=== PATIENT | female | born 2000 | race Two or more races ===

== ENCOUNTER 2025-03-26 17:58 | Emergency (ER) | payer BC, SELFPAY ==
[2025-03-26 17:59] VITALS: BMI 18.1
[2025-03-26 18:39] VITALS: BP 112/71; PULSE 78; RESP 18; TEMP 36.7; O2SAT 98
--- NOTE | 2025-03-26 19:05 | EDNOTE_ITS ---
ED Abdominal Pain RME/HPI General Chief Complaint: Abdominal Pain Stated complaint: LEFT UPPER ABD PAIN Time seen by provider: 03/26/25 18:58 Arrival date/time: 03/26/25 17:58 This is a case of 25 year old female who came in with abdominal pain radiating to both flank with nausea no vomiting denies Limitations: no limitations Related Data Home Medications ?Medication ?Instructions ?Recorded ?Confirmed aripiprazole 5 mg tablet (Abilify) 5 mg PO QDAY 03/02/22 Previous Rx's ?Medication ?Instructions ?Recorded sulfamethoxazole 800 1 tab PO Q12H #14 tabs 05/07 mg-trimethoprim 160 mg tablet (Bactrim DS) baclofen 10 mg tablet 10 mg PO BID PRN muscle spas m #20 03/26/25 tabs ibuprofen 400 mg tablet 400 mg PO Q6H PRN pain #20 t abs 03/26/25 Allergies Allergy/AdvReac Type Severity Reaction Status Date / Time codeine Allergy Unknown Rash Verified 03/26/25 17:59 Review of Systems Review of Systems Systems Reviewed: All systems reviewed, normal except as documented Constitutional Constitutional: Reports system reviewed and no additional complaints, except as documented, Denies anorexia, Denies chills and Denies fever(s) ENT Ears, Nose, Mouth, and Throat: Denies dysphagia Cardiovascular Cardiovascular: Reports system reviewed and no additional complaints, except as documented, Denies chest pain and Denies dyspnea on exertion Respiratory Respiratory: Reports system reviewed and no additional complaints, except as documented, Reports as per HPI, Denies chest congestion, Denies cough and Denies dyspnea on exertion Gastrointestinal Gastrointestinal: Reports system reviewed and no additional complaints, except as documented, Reports as per HPI, Reports abdominal pain, Denies change in bowel habits, Denies change in stool character, Denies coffee ground emesis, Denies constipation, Denies cramping, Denies diarrhea, Denies dyspepsia, Denies dysphagia, Denies early satiety, Denies hematemesis, Reports nausea and Reports vomiting Genitourinary Genitourinary: Reports system reviewed and no additional complaints, except as documented, Reports as per HPI, Denies difficulty voiding and Denies dysuria Musculoskeletal Musculoskeletal: Reports system reviewed and no additional complaints, except as documented Neurologic Neurologic: Reports system reviewed and no additional complaints, except as documented Past Medical History Past Medical History NEUROLOGIC: Negative Cerebrovascular Accident or Alzheimer's Disease CARDIAC: Negative Myocardial Infarction or Congestive Heart Failure RESPIRATORY: Positive Asthma; Negative Chronic Obstructive Pulmonary Disease (COPD) GASTROINTESTINAL: Negative Liver Cancer or Pancreatic Cancer GENITOURINARY: Negative Renal Disease MUSCULOSKELETAL: Negative Musculoskeletal Disorders or Muscular Dystrophy ENDOCRINE: Negative Endocrine Disorders, Diabetes Mellitus Type 1 or Diabetes Mellitus Type 2 PSYCHO/SOCIAL: Positive Psychiatric Problems and Depression OTHER HISTORY: Negative Down Syndrome or Developmental Delay Social History SMOKING STATUS: Never smoker ED Exam General Limitations: Present no limitations General appearance: Present alert and in no apparent distress; Absent appears intoxicated, anxious or lethargic Head Head exam: Present atraumatic, normocephalic and normal inspection Eye Eye exam: Present normal appearance, PERRL and EOMI ENT ENT exam: Present normal exam, normal oropharynx and mucous membranes moist Neck Neck exam: Present normal inspection, full ROM and trachea midline; Absent tend erness, meningismus or lymphadenopathy Chest Chest inspection: Present normal inspection and symmetric chest wall rise Respiratory Respiratory exam: Present normal lung sounds bilaterally; Absent respiratory distress, wheezes, stridor or accessory muscle use Cardiovascular Cardiovascular exam: Present regular rate, normal rhythm and normal heart sounds Abdominal Exam Abdominal exam: Present soft, tenderness, normal bowel sounds and other (no cva tenderness); Absent distention, guarding, rebound, rigidity, diminished bowel sounds, hyperactive bowel sounds, hypoactive bowel sounds, organomegaly, psoas sign, obturator sign, Latham's sign, Rovsing's sign or tenderness at McBurney's Point Extremities Exam Extremities exam: Present normal inspection, full ROM and normal capillary refill; Absent tenderness, pedal edema, joint swelling or calf tenderness Back Exam Back exam: Present normal inspection and full ROM; Absent tenderness, CVA tenderness (R), CVA tenderness (L), muscle spasm, paraspinal tenderness, vertebral tenderness, rashes, sciatic notch tenderness (R), sciatic notch tenderness (L), straight leg raise (R) or straight leg raise (L) Neurological Exam Neurological exam: Present alert, oriented X3, CN II-XII intact, normal gait and reflexes normal; Absent motor sensory deficit Expanded Neurological Exam Motor strength - LUE: 5/5 Motor strength - RUE: 5/5 Motor strength - LLE: 5/5 Motor strength - RLE: 5/5 Psychiatric Psychiatric exam: Present normal affect and normal mood Skin Skin exam: Present warm, dry, intact and normal color Course Quality Measures none Orders Category Date Time Status CT abdomen pelvis wo con Stat Exams 03/26/25 19:15 Completed CBC Stat Lab 03/26/25 19:25 Completed Comprehensive Metabolic Panel Stat Lab 03/26/25 19:25 Completed HCG Qualitative,Urine Stat Lab 03/26/25 19:47 Completed Lipase Stat Lab 03/26/25 19:25 Completed Urinalysis Stat Lab 03/26/25 19:47 Completed Vital Signs Vital signs: Vital Signs Temperature 98.1 F 03/26/25 18:39 Pulse Rate 78 03/26/25 18:39 Respiratory Rate 18 03/26/25 18:39 Blood Pressure 112/71 03/26/25 18:39 Pulse Oximetry (%) 98 03/26/25 18:39 Oxygen Delivery Method Room Air 03/26/25 18:39 Abdominal Pain MDM MDM Narrative MDM Narrative:: This is a case of 25 year old female who came in with abdominal pain radiating to both flank with nausea no vomiting denies Physicial exam showed normal vital signs patient is not tacycardic not tacypneic blood pressure stable afebrile not hypoxic Abdominal exam benign non surgical no guarding no rebound no rigidity. 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 Walking stable Patient verbalized no further complain with the proposed management plan including the need to follow up with his/her primary care physician and and any specialist fif applicable. Discussed patient for any urgent condition or worsening sx He she needed to go to Emergency room of call 911 Patient is acknowledge the responsibility to follow up as instructed and to monitor his/her symptoms For any persistnce of the symtoms for more than 3-5 days retrun precaution advised Discussed the result of thetest and was given printed dsicahrge instruction Patient data External records reviewed:: [facility] previous records Clinical information provided by:: patient Social determinants that could affect healthcare access:: none Patient has the following chronic illnesses:: none How is presenting disease/condition affected by chronic disease/condition?: no chronic disease Evaluation data The following diagnostics were reviewed and interpreted by me:: lab results and radiology exam(s) Lab and/or radiology exams considered but not ordered:: reviewed Interpretation Summary: normal Medications / Prescriptions Medications or Prescriptions considered but not ordered:: none Medication administrations:: given Consultations Consultation(s) initiated? (list below): No Diagnosis Differential diagnosis abdominal pain: abdominal pain, calculus of kidney, constipation and diverticulitis Most likely diagnosis given after review of the tests above:: abdominal pain Admission Indicated Admission indicated?: not indicated Explain why admission is indicated or not indicated:: not indicated Admission Request Was there a request for admission?: No Admission Attestation Admission request attestation: not indicated Disposition Plan Disposition Plan: Discharge Discharge Attestation Discharge Attestation: The patient and all family members were given an opportunity to ask questions and understood the discharge instructions. Discharge instructions specifically effects, indications for sooner follow up or return to the emergency department, and the expected course of current diagnosis. Patient condition: Stable Discharge Plan Plan Patient Disposition: HOME (Self Care) Patient condition on transfer: Stable Prescriptions/Referrals Prescriptions/Med Rec: New ibuprofen 400 mg tablet 400 mg PO Q6H PRN (Reason: pain) Qty: 20 0RF baclofen 10 mg tablet 10 mg PO BID PRN (Reason: muscle spasm) Qty: 20 0RF No Action aripiprazole [Abilify] 5 mg Tablet 5 mg PO QDAY sulfamethoxazole-trimethoprim [Bactrim DS] 800-160 mg tablet 1 tab PO Q12H Qty: 14 0RF Referrals: No Primary/Family,Physician [Primary Care Provider] - In 1 week Sergio Galvez MD [Physician] - In 1 week (for further evaluation and tx of lumbar herniated disc for possible MRI) Problem List Clinical Impression: Bulging lumbar disc, Abdominal pain Patient/Caregiver Discharge Instructions Other Activity Instructions:: no pulling no pushing no lifting more than 5 pounds Education Materials: Abdominal Pain, Back Safety Bed, Back Safety: Bending, Back Safety: Lifting, Common Spine and Disk Problems Print Language: Maldivian Stand Alone Forms: Starr Award Info., Work/School Release, Patient Portal Info Letter PA/SUPERVISOR POULTRY PROCESSING Supervising Physician PA/SUPERVISOR POULTRY PROCESSING Supervising Physician: dr griffith
--- NOTE | 2025-03-26 19:15 | XR_ITS ---
Examination: CT abdomen and pelvis without contrast. Coronal 3-D reconstructions. Sagittal 2-D reconstructions. Date and time of exam:March 26, 2025 2048 hours INDICATIONS: Sudden left-sided abdominal pain today CTDI: vol (mGy): 4.35 DLP: (mGycm): 202 Technique: Axial images of the abdomen have been obtained, 3 mm slice thickness Intravenous contrast material has not been administered. Low dose protocols were performed. One or more of the following dose reduction techniques were used; automated exposure control, adjustment of the mA and/or KV according to patient size, use of iterative reconstruction technique. Findings: No liver or splenic lesion Contracted gallbladder Normal pancreas No renal or ureteral calculi Aorta normal size Normal appendix No bowel obstruction No diverticulitis Retroverted uterus No adnexal mass No bladder mass or bladder calculi L5-S1 3 mm central lumbar disc bulge IMPRESSION: No renal or ureteral calculi, no hydronephrosis Normal appendix No bowel obstruction diverticulitis or free air
[2025-03-26 19:39] LABS: Basophils # (Auto) 0.1 Thou/mm3 (0.0-0.2); Basophils % (Auto) 2 % (0-2.5); Eosinophils # (Auto) 0.2 Thou/mm3 (0.0-0.5); Eosinophils % (Auto) 4 % (0-10); Hematocrit 37.1 % (36.0-46.0); Hemoglobin 12.3 g/dL (12.0-16.0); Immature Granulocytes % (Auto) 0 % (0-0); Lymphocytes # (Auto) 2.3 Thou/mm3 (1.0-4.8); Lymphocytes % (Auto) 58 % (10-50); Mean Corpuscular HGB Conc 33.2 g/dl (31.0-37.0); Mean Corpuscular Hemoglobin 28.1 pg (25.0-35.0); Mean Corpuscular Volume 85 fL (80-100); Monocytes # (Auto) 0.5 Thou/mm3 (0.0-0.8); Monocytes % (Auto) 12 % (0-12); Neutrophils % (Auto) 24 % (37-80); Nucleated Red Blood Cell % 0 /100 WBC (0); Platelet Count 273 Thou/mm3 (140-440); RDW Standard Deviation 38.5 fL (36.4-46.3); Red Blood Count 4.38 Miln/mm3 (4.00-5.20)
[2025-03-26 20:08] LABS: Collection Type, Urine Clean Catch
[2025-03-26 20:25] LABS: Alanine Aminotransferase 10 U/L (10-49); Albumin, Serum 4.9 gm/dL (3.5-5.0); Albumin/Globulin Ratio 1.7 (1.2-2.2); Alkaline Phosphatase 82 U/L (46-116); Anion Gap 9 (7-16); Aspartate Amino Transferase 21 U/L (0-34); BUN/Creatinine Ratio 18 Ratio (12-20); Bilirubin,Total 0.4 mg/dL (0.3-1.2); Blood Urea Nitrogen 18 mg/dL (9-23); Calcium 9.8 mg/dL (8.3-10.6); Calcium (Corrected) 9.8 mg/dL (8.5-10.1); Chloride 100 mMol/L (98-107); Globulin 2.9 gm/dL (2.3-3.5); Glucose 97 mg/dL (74-106); Lipase 51 U/L (12-53); Osmolality,Calculated 277 (275-295); Potassium 3.7 mMol/L (3.4-5.1); Sodium 138 mMol/L (136-145); Total Protein 7.8 gm/dL (5.7-8.2); eGFR > 60 See Note
[2025-03-26 20:26] LABS: Bilirubin,Urine Negative (Negative); Blood,Urine Negative (Negative); Clarity,Urine Clear (Clear/Hazy); Color,Urine Colorless (Lt Yel-Yel); Glucose, Urine Negative (Negative); Ketones,Urine Negative (Negative); Leukocyte Esterase,Urine Negative (Negative); Nitrite,Urine Negative (Negative); PH,Urine 6.5 (5.0-7.0); Protein,Urine Negative (Neg - Trace); RBC,Urine 1 /hpf (0-3); Specific Gravity,Urine 1.006 (1.001-1.035); Squamous Epithelial Cell,Urine 2 /hpf (0-5); Urobilinogen,Urine Negative mg/dL (0.0-1.0); WBC,Urine < 1 /hpf (0-5)
[2025-03-26 20:31] LABS: HCG Qualitative,Urine Negative
[2025-03-26 22:02] VITALS: RESP 18
== END 2025-03-26 22:03 | disposition home or self-care (01) ==
PROVIDERS: Nurse Practitioner Family; Emergency Provider Emergency Medicine
DX: M51.26 Other intervertebral disc displacement, lumbar region (principal); R10.10 Upper abdominal pain, unspecified
CPT/HCPCS: 36415; 74176; 80053; 81001; 81025; 83690; 85025; 99284

== ENCOUNTER → 2025-03-29 | Outpatient (CLI) | payer BC, SELFPAY ==
[2025-03-29 09:12] LABS: Collection Type, Urine Clean Catch
[2025-03-29 09:38] LABS: Bilirubin,Urine Negative (Negative); Blood,Urine Negative (Negative); Clarity,Urine Clear (Clear/Hazy); Color,Urine Lt-Yellow (Lt Yel-Yel); Glucose, Urine Negative (Negative); Ketones,Urine Negative (Negative); Leukocyte Esterase,Urine Negative (Negative); Nitrite,Urine Negative (Negative); PH,Urine 7.5 (5.0-7.0); Protein,Urine Negative (Neg - Trace); RBC,Urine 4 /hpf (0-3); Specific Gravity,Urine 1.014 (1.001-1.035); Squamous Epithelial Cell,Urine 2 /hpf (0-5); Urobilinogen,Urine Negative mg/dL (0.0-1.0); WBC,Urine < 1 /hpf (0-5)
[2025-03-29 09:41] LABS: Basophils # (Auto) 0.1 Thou/mm3 (0.0-0.2); Basophils % (Auto) 2 % (0-2.5); Eosinophils # (Auto) 0.1 Thou/mm3 (0.0-0.5); Eosinophils % (Auto) 5 % (0-10); Glucose Estimated Average 97 mg/dL (80-131); Hematocrit 38.4 % (36.0-46.0); Hemoglobin 12.7 g/dL (12.0-16.0); Immature Granulocytes % (Auto) 0 % (0-0); Immature Granulocytes Auto 0.01 Thou/mm3 (0.00-0.00); Lymphocytes # (Auto) 1.7 Thou/mm3 (1.0-4.8); Lymphocytes % (Auto) 54 % (10-50); Mean Corpuscular HGB Conc 33.1 g/dl (31.0-37.0); Mean Corpuscular Hemoglobin 27.7 pg (25.0-35.0); Mean Corpuscular Volume 84 fL (80-100); Monocytes # (Auto) 0.4 Thou/mm3 (0.0-0.8); Monocytes % (Auto) 11 % (0-12); Neutrophils # (Auto) 0.9 Thou/mm3 (1.8-7.7); Neutrophils % (Auto) 28 % (37-80); Nucleated Red Blood Cell % 0 /100 WBC (0); Platelet Count 266 Thou/mm3 (140-440); RDW Standard Deviation 37.8 fL (36.4-46.3); Red Blood Count 4.58 Miln/mm3 (4.00-5.20); White Blood Count 3.1 Thou/mm3 (3.6-11.0)
[2025-03-29 10:04] LABS: Alanine Aminotransferase 7 U/L (10-49); Albumin, Serum 4.8 gm/dL (3.5-5.0); Albumin/Globulin Ratio 1.6 (1.2-2.2); Alkaline Phosphatase 82 U/L (46-116); Anion Gap 9 (7-16); Aspartate Amino Transferase 21 U/L (0-34); BUN/Creatinine Ratio 16 Ratio (12-20); Bilirubin,Total 0.5 mg/dL (0.3-1.2); Blood Urea Nitrogen 14 mg/dL (9-23); Calcium 9.4 mg/dL (8.3-10.6); Calcium (Corrected) 9.4 mg/dL (8.5-10.1); Carbon Dioxide 29.1 mMol/L (20.0-31.0); Cardiac Risk Estimate 2.8 RATIO (3.7-5.6); Chloride 104 mMol/L (98-107); Cholesterol 188 mg/dL (132-200); Creatinine (Component) 0.9 mg/dL (0.6-1.3); Glucose 87 mg/dL (74-106); HDL Cholesterol 66 mg/dL (40-60); LDL Cholesterol,Calculated 112 mg/dL (0-130); Osmolality,Calculated 282 (275-295); Potassium 4.2 mMol/L (3.4-5.1); Sodium 142 mMol/L (136-145); Thyroid Stimulating Hormone 6.05 uIU/mL (0.55-4.78); Total Protein 7.8 gm/dL (5.7-8.2); Triglycerides 51 mg/dL (30-150); eGFR > 60 See Note
[2025-03-29 10:25] LABS: Hepatitis C Antibody Non Reactive (Non React); Vitamin D 25 Hydroxy Total 17.2 ng/mL (7.3-40.2)
[2025-03-29 12:24] LABS: Path Review Blood Smear Sent to Pathologist
[2025-04-02 07:04] LABS: Fecal Globin Result NOT DETECTED (NOT DETECTED)
== END | disposition home or self-care (01) ==
LOC: COPL 08:10
PROVIDERS: PCP Family Medicine; Referring Provider Family Medicine; Visit Provider Family Medicine
DX: Z76.89 Persons encountering health services in other specified circumstances (principal)
CPT/HCPCS: 36415; 80053; 80061; 81001; 82274; 82306; 83036; 84443; 85025; 86803; G0328

== ENCOUNTER 2025-05-18 02:02 | Emergency (ER) | payer BC, SELFPAY ==
[2025-05-18 02:11] VITALS: BP 105/74; PULSE 90; RESP 18; TEMP 36.7; O2SAT 98
--- NOTE | 2025-05-18 02:13 | EKG_ITS ---
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
--- NOTE | 2025-05-18 02:42 | EDNOTE_ITS ---
<Statement entered by Sloane Evans MD - 05/20/25 18:55> As co-signing physician, I was present and available for consult prn. I concur with the plan and care as documented by the midlevel provider. ED Back Injury Pain RME/HPI General Chief Complaint: General Adult/Misc Complain Stated Complaint: LEFT ARM NUMBNESS, UPPER BACK PAIN Time Seen by Provider: 05/18/25 02:37 Arrival date/time: 05/18/25 02:02 25F with no history of psych presents to ED with several hours of L upper back pain and L arm numbness. Patient denies fall/trauma, SOB, and URI symptoms. 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 Limitations: no limitations Related Data Home Medications ?Medication ?Instructions ?Recorded ?Confirmed aripiprazole 5 mg tablet (Abilify) 5 mg PO QDAY 03/02/22 Previous Rx's ?Medication ?Instructions ?Recorded sulfamethoxazole 800 1 tab PO Q12H #14 tabs 05/07 mg-trimethoprim 160 mg tablet (Bactrim DS) baclofen 10 mg tablet 10 mg PO BID PRN muscle spas m #20 03/26/25 tabs ibuprofen 400 mg tablet 400 mg PO Q6H PRN pain #20 t abs 03/26/25 Allergies Allergy/AdvReac Type Severity Reaction Status Date / Time codeine Allergy Unknown Rash Verified 05/18/25 02:03 Review of Systems Review of Systems Systems Reviewed: All systems reviewed, normal except as documented Constitutional Constitutional: Reports system reviewed and no additional complaints, except as documented, Denies fever(s) and Denies headache(s) ENT Ears, Nose, Mouth, and Throat: Denies disequilibrium and Denies headache(s) Cardiovascular Cardiovascular: Reports system reviewed and no additional complaints, except as documented, Denies chest pain and Denies dyspnea Respiratory Respiratory: Reports system reviewed and no additional complaints, except as documented, Denies cough and Denies dyspnea Gastrointestinal Gastrointestinal: Reports system reviewed and no additional complaints, except as documented, Denies abdominal pain, Denies nausea and Denies vomiting Musculoskeletal Musculoskeletal: Reports as per HPI, Reports back pain and Reports numbness Neurologic Neurologic: Reports system reviewed and no additional complaints, except as documented, Denies confusion, Denies disequilibrium, Denies headache(s) and Reports numbness Psychiatric Psychiatric: Denies confusion Past Medical History Past Medical History NEUROLOGIC: Negative Cerebrovascular Accident or Alzheimer's Disease CARDIAC: Negative Myocardial Infarction or Congestive Heart Failure RESPIRATORY: Positive Asthma; Negative Chronic Obstructive Pulmonary Disease (COPD) GASTROINTESTINAL: Negative Liver Cancer or Pancreatic Cancer GENITOURINARY: Negative Renal Disease MUSCULOSKELETAL: Negative Musculoskeletal Disorders or Muscular Dystrophy ENDOCRINE: Negative Endocrine Disorders, Diabetes Mellitus Type 1 or Diabetes Mellitus Type 2 PSYCHO/SOCIAL: Positive Psychiatric Problems and Depression OTHER HISTORY: Negative Down Syndrome or Developmental Delay Social History SMOKING STATUS: Never smoker ED Exam General Limitations: Present no limitations General appearance: Present alert and in no apparent distress Head Head exam: Present atraumatic Eye Eye exam: Present normal appearance, PERRL and EOMI ENT ENT exam: Present normal exam, normal oropharynx and mucous membranes moist Neck Neck exam: Present normal inspection, full ROM and trachea midline Chest Chest inspection: Present normal inspection and symmetric chest wall rise Respiratory Respiratory exam: Present normal lung sounds bilaterally Cardiovascular Cardiovascular exam: Present regular rate, normal rhythm and normal heart sounds Abdominal Exam Abdominal exam: Present soft and normal bowel sounds Extremities Exam Extremities exam: Present normal inspection and full ROM Back Exam Back exam: Present normal inspection and full ROM Neurological Exam Neurological exam: Present alert, oriented X3 and CN II-XII intact Psychiatric Psychiatric exam: Present normal affect and normal mood Skin Skin exam: Present warm, dry, intact and normal color Course Quality Measures none Orders Category Date Time Status EKG (ED ONLY) *Do not use* NOW Care 05/18/25 02:13 Completed EKG (ED Only) Stat Exams 05/18/25 02:13 Draft Vital Signs Vital signs: Vital Signs Temperature 98.1 F 05/18/25 02:11 Pulse Rate 90 05/18/25 02:11 Respiratory Rate 18 05/18/25 02:11 Blood Pressure 105/74 05/18/25 02:11 Pulse Oximetry (%) 98 05/18/25 02:11 Oxygen Delivery Method Room Air 05/18/25 02:11 O2 at 98% on RA and WNLs Back Pain / Injury MDM Narrative MDM Narrative:: 25F with no history of psych presents to ED with several hours of L upper back pain and L arm numbness. Patient denies fall/trauma, SOB, and URI symptoms. 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 Physical exam reveals clear lungs. Normal WOB. BUE exam normal. Strength and ROM intact. Patient is afebrile, calm, and alert. EKG is sinus tach of 104. Likely MSK-related. Educational Recruiter given. Patient data External records reviewed:: [facility] previous records Clinical information provided by:: patient Social determinants that could affect healthcare access:: mental health Patient has the following chronic illnesses:: psych How is presenting disease/condition affected by chronic disease/condition?: exacerbated by Evaluation data The following diagnostics were reviewed and interpreted by me:: EKG tracing(s) Lab and/or radiology exams considered but not ordered:: ordered Interpretation Summary: above Medications / Prescriptions Medications or Prescriptions considered but not ordered:: not ordered Medication administrations:: n/a Consultations Consultation(s) initiated? (list below): No Diagnosis Differential diagnosis back pain/injury: lumbar radiculopathy, sciatica, strain of lumbar region, renal colic, pyelonephritis, thoracic back pain, AAA and discitis Most likely diagnosis given after review of the tests above:: back pain Admission Indicated Admission indicated?: not indicated Admission Request Was there a request for admission?: No Disposition Plan Disposition Plan: Discharge Discharge Attestation Discharge Attestation: The patient and all family members were given an opportunity to ask questions and understood the discharge instructions. Discharge instructions specifically effects, indications for sooner follow up or return to the emergency department, and the expected course of current diagnosis. Patient condition: Stable Discharge Plan Plan Patient Disposition: HOME (Self Care) Discharge Disposition comment: Stable Prescriptions/Referrals Prescriptions/Med Rec: No Action aripiprazole [Abilify] 5 mg Tablet 5 mg PO QDAY sulfamethoxazole-trimethoprim [Bactrim DS] 800-160 mg tablet 1 tab PO Q12H Qty: 14 0RF ibuprofen 400 mg tablet 400 mg PO Q6H PRN (Reason: pain) Qty: 20 0RF baclofen 10 mg tablet 10 mg PO BID PRN (Reason: muscle spasm) Qty: 20 0RF Problem List Clinical Impression: Back pain Patient/Caregiver Discharge Instructions Education Materials: ED Back Pain (Acute or Chronic) Additional Instructions: Please follow-up with PCP within 24-48 hours and return immediately if symptoms worsen. If problem persists, recommend outpatient PT and/or MRI follow-up. In the meantime, rest, use ice/heat, and/or compression. Print Language: Serbian Stand Alone Forms: Patient Portal Info Letter PA/SECRETARY TO THE VICE PRESIDENT Supervising Physician PA/SECRETARY TO THE VICE PRESIDENT Supervising Physician: Dr. Evans
== END 2025-05-18 02:45 | disposition home or self-care (01) ==
LOC: SERX 02:47
PROVIDERS: Emergency Provider Emergency Medicine; PCP Family Medicine
DX: M54.6 Pain in thoracic spine (principal); R20.0 Anesthesia of skin; R94.31 Abnormal electrocardiogram [ECG] [EKG]
CPT/HCPCS: 93005; 99283

== ENCOUNTER → 2025-07-23 | Outpatient (CLI) | payer BC, SELFPAY ==
--- NOTE | 2025-07-23 08:36 | XR_ITS ---
Examination: Abdomen sonogram, complete Date and time of exam: July 23, 2025 0900 hours INDICATIONS: Flank pain beginning one week ago.. Technique: Multiple real-time grayscale transabdominal sonographic images of the abdomen have been obtained. Findings: Normal gallbladder. Normal common bile duct 0.2 cm Pancreatic head 1.2 cm Aorta not enlarged. Liver 12.7 cm no liver lesions Normal hepatopedal portal venous flow. Patent IVC. Right kidney 8.6 cm cortex 0.8 cm Minimal hydronephrosis Left kidney 8.8 cm cortex 1.4 cm Minimal hydronephrosis. No renal calculi Spleen 8 cm IMPRESSION: Normal gallbladder Small kidneys with bilateral renal cortical thinning Minimal bilateral hydronephrosis, consider CT scan abdomen pelvis without intravenous contrast follow-up
--- NOTE | 2025-07-23 08:36 | XR_ITS ---
Examination: Retroperitoneal ultrasound, complete Technique: Multiple high resolution grayscale images of the retroperitoneum obtained, including kidneys and bladder. Exam date and time:July 23, 2025 0911 hours INDICATIONS: Bilateral flank pain beginning one week ago FINDINGS: Right kidney 8.7 cm cortex 0.9 cm Left kidney 8.6 cm renal cortex 1.4 cm Minimal bilateral hydronephrosis. No bladder mass or bladder calculi Bladder prevoid volume 190 cc postvoid volume 0 cc IMPRESSION: Small kidneys with bilateral renal cortical thinning Minimal bilateral hydronephrosis, consider urinary tract infection
[2025-07-23 10:27] LABS: Basophils # (Auto) 0.1 Thou/mm3 (0.0-0.2); Basophils % (Auto) 2 % (0-2.5); Eosinophils # (Auto) 0.1 Thou/mm3 (0.0-0.5); Eosinophils % (Auto) 4 % (0-10); Hematocrit 36.4 % (36.0-46.0); Hemoglobin 12.0 g/dL (12.0-16.0); Immature Granulocytes Auto 0.00 Thou/mm3 (0.00-0.00); Lymphocytes # (Auto) 1.8 Thou/mm3 (1.0-4.8); Lymphocytes % (Auto) 58 % (10-50); Mean Corpuscular HGB Conc 33.0 g/dl (31.0-37.0); Mean Corpuscular Hemoglobin 28.2 pg (25.0-35.0); Mean Corpuscular Volume 85 fL (80-100); Monocytes # (Auto) 0.3 Thou/mm3 (0.0-0.8); Monocytes % (Auto) 11 % (0-12); Neutrophils # (Auto) 0.8 Thou/mm3 (1.8-7.7); Neutrophils % (Auto) 26 % (37-80); Nucleated Red Blood Cell # 0.00 Thou/mm3 (0.00-0.00); Nucleated Red Blood Cell % 0 /100 WBC (0); Platelet Count 260 Thou/mm3 (140-440); RDW Standard Deviation 37.8 fL (36.4-46.3); Red Blood Count 4.26 Miln/mm3 (4.00-5.20); White Blood Count 3.1 Thou/mm3 (3.6-11.0)
[2025-07-23 10:37] LABS: Alanine Aminotransferase < 7 U/L (10-49); Albumin, Serum 4.8 gm/dL (3.5-5.0); Albumin/Globulin Ratio 2.3 (1.2-2.2); Alkaline Phosphatase 66 U/L (46-116); Anion Gap 7 (7-16); Aspartate Amino Transferase 21 U/L (0-34); BUN/Creatinine Ratio 13 Ratio (12-20); Bilirubin,Total 0.5 mg/dL (0.3-1.2); Blood Urea Nitrogen 12 mg/dL (9-23); Calcium 9.6 mg/dL (8.3-10.6); Calcium (Corrected) 9.6 mg/dL (8.5-10.1); Carbon Dioxide 28.6 mMol/L (20.0-31.0); Chloride 103 mMol/L (98-107); Creatinine (Component) 0.9 mg/dL (0.6-1.3); Globulin 2.1 gm/dL (2.3-3.5); Glucose 84 mg/dL (74-106); Osmolality,Calculated 276 (275-295); Potassium 4.4 mMol/L (3.4-5.1); Sodium 139 mMol/L (136-145); Total Protein 6.9 gm/dL (5.7-8.2); eGFR > 60 See Note
[2025-07-23 14:31] LABS: Collection Type, Urine Clean Catch
[2025-07-23 15:19] LABS: Bacteria,Urine Rare; Bilirubin,Urine Negative (Negative); Blood,Urine Negative (Negative); Clarity,Urine Clear (Clear/Hazy); Color,Urine Yellow (Lt Yel-Yel); Glucose, Urine Negative (Negative); Ketones,Urine Negative (Negative); Leukocyte Esterase,Urine Negative (Negative); Nitrite,Urine Negative (Negative); PH,Urine 7.5 (5.0-7.0); Protein,Urine Negative (Neg - Trace); RBC,Urine 1 /hpf (0-3); Specific Gravity,Urine 1.017 (1.001-1.035); Squamous Epithelial Cell,Urine 1 /hpf (0-5); Urobilinogen,Urine Negative mg/dL (0.0-1.0); WBC,Urine 1 /hpf (0-5)
== END | disposition home or self-care (01) ==
LOC: CDIM 08:20 → COPL 09:23
PROVIDERS: PCP Family Medicine; Referring Provider Registered Nurse; Visit Provider Radiology Diagnostic Radiology
DX: N27.1 Small kidney, bilateral (principal); N13.30 Unspecified hydronephrosis; N28.89 Other specified disorders of kidney and ureter; N23 Unspecified renal colic
CPT/HCPCS: 36415; 76700; 76770; 80053; 81001; 85025; 87086

== ENCOUNTER → 2025-10-07 | Outpatient (CLI) | payer BC, SELFPAY ==
[2025-10-07 16:43] LABS: Basophils # (Auto) 0.1 Thou/mm3 (0.0-0.2); Basophils % (Auto) 2 % (0-2.5); Eosinophils # (Auto) 0.1 Thou/mm3 (0.0-0.5); Eosinophils % (Auto) 3 % (0-10); Hematocrit 36.7 % (36.0-46.0); Hemoglobin 11.9 g/dL (12.0-16.0); Immature Granulocytes Auto 0.00 Thou/mm3 (0.00-0.00); Lymphocytes # (Auto) 1.6 Thou/mm3 (1.0-4.8); Lymphocytes % (Auto) 33 % (10-50); Mean Corpuscular HGB Conc 32.4 g/dl (31.0-37.0); Mean Corpuscular Hemoglobin 28.1 pg (25.0-35.0); Mean Corpuscular Volume 87 fL (80-100); Monocytes # (Auto) 0.5 Thou/mm3 (0.0-0.8); Monocytes % (Auto) 10 % (0-12); Neutrophils # (Auto) 2.5 Thou/mm3 (1.8-7.7); Neutrophils % (Auto) 53 % (37-80); Nucleated Red Blood Cell # 0.00 Thou/mm3 (0.00-0.00); Nucleated Red Blood Cell % 0 /100 WBC (0); Platelet Count 288 Thou/mm3 (140-440); RDW Standard Deviation 37.7 fL (36.4-46.3); Red Blood Count 4.24 Miln/mm3 (4.00-5.20); White Blood Count 4.7 Thou/mm3 (3.6-11.0)
[2025-10-07 17:19] LABS: Alanine Aminotransferase 13 U/L (10-49); Albumin, Serum 5.1 gm/dL (3.5-5.0); Albumin/Globulin Ratio 1.8 (1.2-2.2); Alkaline Phosphatase 78 U/L (46-116); Anion Gap 12 (7-16); Aspartate Amino Transferase 23 U/L (0-34); BUN/Creatinine Ratio 25 Ratio (12-20); Bilirubin,Total 0.4 mg/dL (0.3-1.2); Blood Urea Nitrogen 20 mg/dL (9-23); Calcium 10.0 mg/dL (8.3-10.6); Calcium (Corrected) 10.0 mg/dL (8.5-10.1); Carbon Dioxide 26.5 mMol/L (20.0-31.0); Chloride 103 mMol/L (98-107); Creatinine (Component) 0.8 mg/dL (0.6-1.3); Free T4 (Free Thyroxine) 0.85 ng/dL (0.89-1.76); Globulin 2.8 gm/dL (2.3-3.5); Glucose 82 mg/dL (74-106); Osmolality,Calculated 282 (275-295); Potassium 3.9 mMol/L (3.4-5.1); Sodium 141 mMol/L (136-145); Thyroid Stimulating Hormone 6.02 uIU/mL (0.55-4.78); Total Protein 7.9 gm/dL (5.7-8.2); eGFR > 60 See Note
[2025-10-07 21:51] LABS: Syphilis Nonreactive (Nonreactive)
[2025-10-08 13:21] LABS: Ferritin 25 ng/mL (7.3-270.7); Iron 22 mcg/dL (50-170)
[2025-10-09 14:05] LABS: Cocci Serology, IgM Negative (Negative)
[2025-10-10 12:11] LABS: Cocci Serology, IgG Negative (Negative)
[2025-10-14 06:37] LABS: ANA Screen, IFA NEGATIVE (NEGATIVE); DHEA Sulfate* 204 mcg/dL (18-391); Testosterone, Free,Dialysis 2.0 pg/mL (0.1-6.4); Testosterone, Total, Dialysis 28 ng/dL (2-45)
== END | disposition home or self-care (01) ==
LOC: COPL 15:54
PROVIDERS: PCP Registered Nurse; Referring Provider Registered Nurse; Visit Provider Registered Nurse
DX: L65.9 Nonscarring hair loss, unspecified (principal)
CPT/HCPCS: 36415; 80053; 82627; 82728; 83540; 84402; 84403; 84439; 84443; 85025; 86038; 86331; 86635; 86780